=== PATIENT | male | born 1990 | race Caucasian/White ===

== ENCOUNTER 2021-02-25 10:03 | Emergency (ER) | payer MEDICAID, OTHER ==
[~2021-02-25] VITALS: Ht 188 cm; Wt 102.0 kg
[2021-02-25 11:11] LABS: BASOPHILS % (AUTO) 1 % (0-1); EOSINOPHILS % (AUTO) 1 % (1-7); LYMPHOCYTES % (AUTO) 24 % (22-44); MEAN CORPUSCULAR HEMOGLOBIN 31.4 pg (27.5-34.5); MEAN CORPUSCULAR HGB CONC 34.1 g/dL (33.2-36.2); MEAN PLATELET VOLUME 7.6 fL (7.4-10.4); MONOCYTES % (AUTO) 7 % (2-9); NEUTROPHILS % (AUTO) 68 % (42-75); PLATELET COUNT 243 x10^3/uL (130-400); RED BLOOD COUNT 5.31 x10^6/uL (4.38-5.82); RED CELL DISTRIBUTION WIDTH 13.1 % (9.4-14.8)
[2021-02-25 11:20] LABS: ALANINE AMINOTRANSFERASE 86 U/L (12-78); ALBUMIN 4.4 g/dL (3.4-5.0); CALCIUM 9.7 mg/dL (8.5-10.1); CREATININE 1.01 mg/dL (0.7-1.3)
[2021-02-25 11:22] LABS: ALKALINE PHOSPHATASE 76 U/L (45-117); BILIRUBIN,TOTAL 0.6 mg/dL (0.2-1.0); TOTAL PROTEIN 8.2 g/dL (6.4-8.2)
[2021-02-25 11:31] LABS: ANION GAP 6 mmol/L (5-15); CHLORIDE 107 mmol/L (98-107)
[2021-02-25 12:05] VITALS: BP 149/86
--- NOTE | 2021-02-25 12:07 | NUR ---
TRIAGE TECH: PT AMBULATORY TO TRIAGE ROOM FOR SECOND SET OF VITALS.
--- NOTE | 2021-02-25 14:37 | NUR ---
I AM ASSUMING CARE OF THIS PT FROM HELENA (RENETTA) AT THIS TIME. SBAR WAS EXCHANGED AT THE BEDSIDE.
== END 2021-02-25 15:03 | disposition home or self-care (01) ==
LOC: ED 14:55
DX: F10.139 Alcohol abuse with withdrawal, unspecified (principal); F17.200 Nicotine dependence, unspecified, uncomplicated; Y90.0 Blood alcohol level of less than 20 mg/100 ml
CPT/HCPCS: 36415; 80053; 80320; 85025; 99283; G0480